=== PATIENT | female | born 1935 | race Caucasian/White ===

== ENCOUNTER → 2019-02-19 | Outpatient (CLI) | payer MEDICARE ==
--- NOTE | 2019-02-19 15:25 | RAD ---
Bilateral lower extremity venous duplex study 02/19/2019 2:00 PM Clinical History: Leg discomfort. Elevated d-dimer. Comparison: None available Technique: Using a combination of real time ultrasound imaging and color-flow and pulse Doppler imaging techniques along with graded compression and augmentation, duplex evaluation of the deep venous system of the both lower extremities was performed. Multiple images were obtained. Findings: There is no sonographic evidence of deep venous thrombosis involving the visualized deep venous structures of either lower extremity. Left popliteal fossa cyst measuring 7.0 x 3.7 x 1.7 cm noted. Impression: No evidence of deep venous thrombosis involving either lower extremity Electronically signed by: Ruddy Yañez MD (02/19/2019 3:23 PM) [id number]
== END | disposition home or self-care (01) ==
LOC: US 14:36
PROVIDERS: ATTEND Nurse Practitioner Family
DX: M25.862 Other specified joint disorders, left knee (principal); M79.89 Other specified soft tissue disorders
CPT/HCPCS: 93970

== ENCOUNTER 2019-08-31 11:43 | Emergency (ER) | payer MEDICARE ==
[2019-08-31] MEDS ORDERED: IV NORMAL SALINE 1000ML BAG 1,000 ML IV SCH (11:57)
[2019-08-31] MEDS ORDERED: ONDANSETRON PF 4 MG/2 ML VIAL. IV ONE (12:00)
[2019-08-31] MEDS ORDERED: fentaNYL PF VIAL 100 MCG/2 ML VIAL IV PRN (12:00)
[2019-08-31 12:39] LABS: BASO % 1 % (0-3); EOS # 0.1 x10^3/uL (0.0-0.7); EOS % 2 % (0-3); HEMATOCRIT 44.3 % (36.0-47.0); HEMOGLOBIN 15.1 g/dL (12.0-15.5); LYMPH # 1.2 x10^3/uL (1.0-4.8); LYMPH % 21 % (24-48); MEAN CORPUSCULAR HEMOGLOBIN 30 pg (25-35); MEAN CORPUSCULAR HGB CONC 34 g/dL (31-37); MEAN CORPUSCULAR VOLUME 89 fL (79-100); MONO # 0.5 x10^3/uL (0.0-1.1); MONO % 9 % (0-9); NEUT # 3.9 x10^3/uL (1.8-7.7); NEUT % 68 % (31-73); PLATELET COUNT 181 x10^3/uL (140-400); RED BLOOD COUNT 4.96 x10^6/uL (3.50-5.40); RED CELL DISTRIBUTION WIDTH 13.8 % (11.5-14.5); WHITE BLOOD COUNT 5.7 x10^3/uL (4.0-11.0)
[2019-08-31] MEDS ORDERED: FAMOTIDINE 20 MG/2 ML VIAL IVP ONE (12:45)
--- NOTE | 2019-08-31 13:04 | PHYS DOC ---
Past Medical History Past Medical History: Anxiety, Arthritis, Diabetes-Type II, High Cholesterol, Hypertension, Hypothyroid, IBS Additional Past Medical Histor: hemmrhoids, neuropathy, cardiomegaly Past Surgical History: Angioplasty, Cholecystectomy Additional Past Surgical Histo: L breast mass removal Alcohol Use: None Adult General Chief Complaint Chief Complaint: MECHANICAL FALL HPI HPI Patient is an 84-year-old female who presents with complaint of right lower adnexal pain that started 5 that pain is progressively getting worse. She states the pain was so severe 2 days ago that she had a syncopal event. Patient states pain is an 8 out of 10 at this time. She states the pain is worsened when she tries to stand up. She has had some nausea but no vomiting. She denies any radiation of the pain.[] Review of Systems Review of Systems Constitutional: Denies fever or chills [] Respiratory: Denies cough or shortness of breath [] Cardiovascular: No additional information not addressed in HPI [] GI: Complains of right lower abdominal pain without vomiting or diarrhea [] Integument: Denies rash or skin lesions [] Neurologic: Denies headache, focal weakness or sensory changes [] All other systems were reviewed and found to be within normal limits, except as documented in this note. Current Medications Current Medications Current Medications Medications (Trade) Dose Ordered Sig/Aj Start Time Stop Time Status Last Admin Dose Admin Famotidine (Pepcid Vial) 20 mg 1X ONCE 08/31/19 12:45 08/31/19 12:46 DC 08/31/19 12:46 20 MG Fentanyl Citrate (Fentanyl 2ml Vial) 25 mcg PRN Q15MIN PRN 08/31/19 12:00 09/01/19 11:59 08/31/19 12:47 25 MCG Info (CONTRAST GIVEN -- Rx MONITORING) 1 each PRN DAILY PRN 08/31/19 15:15 09/02/19 15:14 Iohexol (Omnipaque 300 Mg/ml) 60 ml 1X ONCE 08/31/19 15:15 08/31/19 15:16 DC 08/31/19 15:21 60 ML Ondansetron HCl (Zofran) 4 mg 1X ONCE 08/31/19 12:00 08/31/19 12:36 DC 08/31/19 12:46 4 MG Sodium Chloride 1,000 ml @ 1,000 mls/hr Q1H 1/18/20 11:57 08/31/19 12:56 DC 08/31/19 12:46 1,000 MLS/HR Allergies Allergies Allergies Coded Allergies Type Severity Reaction Last Updated Verified No Known Drug Allergies 08/31/19 No Physical Exam Physical Exam Constitutional: Well developed, well nourished, no acute distress, non-toxic appearance. [] HENT: Normocephalic, atraumatic, bilateral external ears normal, oropharynx moist, no oral exudates, nose normal. [] Eyes: PERRLA, EOMI, conjunctiva normal, no discharge. [] Neck: Normal range of motion, no tenderness, supple, no stridor. [] Cardiovascular: Regular rate and rhythm[] Lungs & Thorax: Bilateral breath sounds clear to auscultation [] Abdomen: Bowel sounds normal, soft, with right adnexal tenderness. [] Skin: Warm, dry, no erythema, no rash. [] Extremities: No tenderness, no cyanosis, no clubbing, ROM intact. [] Neurologic: Alert and oriented X 3, no focal deficits noted. [] Current Patient Data Vital Signs Vital Signs Date Time Temp Pulse Resp B/P (MAP) Pulse Ox O2 Delivery O2 Flow Rate FiO2 08/31/19 14:30 64 15 93 08/31/19 12:47 Room Air 08/31/19 12:15 97.5 161/85 (110) 97.5 Lab Values Laboratory Tests Test 08/31/19 12:25 08/31/19 13:25 08/31/19 15:55 White Blood Count 5.7 x10^3/uL (4.0-11.0) Red Blood Count 4.96 x10^6/uL (3.50-5.40) Hemoglobin 15.1 g/dL (12.0-15.5) Hematocrit 44.3 % (36.0-47.0) Mean Corpuscular Volume 89 fL (79-100) Mean Corpuscular Hemoglobin 30 pg (25-35) Mean Corpuscular Hemoglobin Concent 34 g/dL (31-37) Red Cell Distribution Width 13.8 % (11.5-14.5) Platelet Count 181 x10^3/uL (140-400) Neutrophils (%) (Auto) 68 % (31-73) Lymphocytes (%) (Auto) 21 % (24-48) L Monocytes (%) (Auto) 9 % (0-9) Eosinophils (%) (Auto) 2 % (0-3) Basophils (%) (Auto) 1 % (0-3) Neutrophils # (Auto) 3.9 x10^3/uL (1.8-7.7) Lymphocytes # (Auto) 1.2 x10^3/uL (1.0-4.8) Monocytes # (Auto) 0.5 x10^3/uL (0.0-1.1) Eosinophils # (Auto) 0.1 x10^3/uL (0.0-0.7) Basophils # (Auto) 0.0 x10^3/uL (0.0-0.2) Sodium Level 139 mmol/L (136-145) Potassium Level 4.2 mmol/L (3.5-5.1) Chloride Level 100 mmol/L (98-107) Carbon Dioxide Level 28 mmol/L (21-32) Anion Gap 11 (6-14) Blood Urea Nitrogen 21 mg/dL (7-20) H Creatinine 0.9 mg/dL (0.6-1.0) Estimated GFR (Cockcroft-Gault) 59.9 BUN/Creatinine Ratio 23 (6-20) H Glucose Level 131 mg/dL (70-99) H Calcium Level 10.4 mg/dL (8.5-10.1) H Total Bilirubin 0.9 mg/dL (0.2-1.0) Aspartate Amino Transferase (AST) 31 U/L (15-37) Alanine Aminotransferase (ALT) 16 U/L (14-59) Alkaline Phosphatase 53 U/L (46-116) Total Protein 7.4 g/dL (6.4-8.2) Albumin 3.3 g/dL (3.4-5.0) L Albumin/Globulin Ratio 0.8 (1.0-1.7) L Lipase 103 U/L (73-393) Urine Collection Type Unknown Urine Color Yellow Urine Clarity Cloudy Urine pH 5.0 Urine Specific Wells 1.025 Urine Protein Negative mg/dL (NEG-TRACE) Urine Glucose (UA) Negative mg/dL (NEG) Urine Ketones (Stick) Negative mg/dL (NEG) Urine Blood Negative (NEG) Urine Nitrite Negative (NEG) Urine Bilirubin Negative (NEG) Urine Urobilinogen Dipstick 0.2 mg/dL (0.2 mg/dL) Urine Leukocyte Esterase Small (NEG) Urine RBC 0 /HPF (0-2) Urine WBC 1-4 /HPF (0-4) Urine Squamous Epithelial Cells Mod /LPF Urine Bacteria 0 /HPF (0-FEW) Urine Mucus Slight /LPF Laboratory Tests 08/31/19 12:25 Laboratory Tests 08/31/19 13:25 EKG EKG [] Radiology/Procedures Radiology/Procedures [] Impressions: PROCEDURE: CT ABD PELV W/ IV CONTRST ONLY CT study of the abdomen and pelvis with contrast Clinical indications: Right lower quadrant abdominal pain. TECHNIQUE: After IV infusion of 60 cc of Omnipaque 300, helical CT scanning of the abdomen and pelvis was performed. No GI contrast was administered. This may decrease the sensitivity to detect GI tract pathology. PQRS compliance Statement One or more of the following individualized dose reduction techniques were utilized for this study: 1. Automated exposure control 2. Adjustment of the mA and/or kV according to patient size 3. Use of iterative reconstruction technique COMPARISON: None available. FINDINGS: Diffuse fatty infiltration of the liver is seen. No hepatic mass is seen. The spleen is not enlarged. Pancreas is normal. The gallbladder is not apparent and therefore appears to be surgically absent. No adrenal mass is evident. No hydronephrosis or renal mass or perinephric fluid collection is seen on either side. No hydroureter or urinary tract stone is evident. Urinary bladder is not abnormally distended. No focal aneurysmal dilatation of the abdominal aorta is seen. No enlarged abdominal or pelvic lymphadenopathy is evident. No uterine mass is seen. No dominant ovarian cyst or mass is evident. No obstructive bowel pattern is evident. The appendix is not visualized but there are no secondary CT findings of appendicitis. No free air or free fluid or mesenteric edema is seen. Umbilical hernia is seen containing only fat with mild inflammatory changes. A smaller anterior midline abdominal hernia is seen more superiorly containing only fat. No lung base consolidation is evident. Calcified granuloma of the posterior right lung base is seen. There is a mild compression deformity of the superior endplate of L2. IMPRESSION: Mild compression fracture of the superior endplate of L2 of indeterminate age. Small umbilical hernia containing fat. There is mild inflammation present here consistent with incarceration. The hernia measures 5.5 cm in vertical dimension. There is another anterior abdominal wall hernia more superiorly within the midline which contains only fat and measures 2.7 cm. No inflammation is seen here. Diffuse fatty infiltration of the liver. Electronically signed by: Marc Paredes MD (08/31/2019 4:01 PM) [facility] [place] DICTATED and SIGNED BY: MARC PAREDES MD DATE: 08/31/19 1601 Course & Med Decision Making Course & Med Decision Making Pertinent Labs and Imaging studies reviewed. (See chart for details) Findings of patient's studies reviewed with patient. After reviewing findings of CT, especially in relation to umbilical hernia, patient's hernia was palpated throughout and patient reports no tenderness. There are no external inflammatory signs to suggest incarceration. Patient does report to significant improvement in symptoms at this time. It was explained to patient that we have found nothing to explain pain in the location she is having it. Dragon Disclaimer Dragon Disclaimer This electronic medical record was generated, in whole or in part, using a voice recognition dictation system. Departure Departure Impression: Primary Impression: Right lower quadrant abdominal pain Disposition: HOME, SELF-CARE Condition: STABLE Referrals: HEIKE SANFORD MD (PCP) Patient Instructions: Abdominal Pain Scripts Ondansetron (ONDANSETRON ODT) 4 Mg Tab.rapdis 1 TAB PO PRN Q6-8HRS PRN for NAUSEA, #15 TAB Prov: MALATHI GATICA Jr. DO 08/31/19 Hydrocodone/Apap 5-325 (NORCO 5-325 TABLET) 1 Each Tablet 1-2 EACH PO PRN Q6HRS PRN for PAIN, #15 as needed for pain Prov: MALATHI GATICA Jr. DO 08/31/19 MALATHI GATICA Jr. DO Aug 31, 2019 13:04
[2019-08-31 13:56] LABS: CALCIUM 10.4 mg/dL (8.5-10.1); CREATININE 0.9 mg/dL (0.6-1.0); GFR 59.9; POTASSIUM 4.2 mmol/L (3.5-5.1)
[2019-08-31 14:02] LABS: ALBUMIN 3.3 g/dL (3.4-5.0); ALBUMIN/GLOBULIN RATIO 0.8 (1.0-1.7); TOTAL BILIRUBIN 0.9 mg/dL (0.2-1.0); TOTAL PROTEIN 7.4 g/dL (6.4-8.2)
[2019-08-31] MEDS ORDERED: CONTRAST GIVEN. MC PRN (15:15)
[2019-08-31] MEDS ORDERED: IOHEXOL 300 MG/ML 100ML VIAL. IV ONE (15:15)
[2019-08-31 15:55] VITALS: BP 147/67
[2019-08-31 16:02] LABS: BILIRUBIN,URINE NEGATIVE (NEG); CLARITY,URINE CLOUDY; COLOR,URINE YELLOW; NITRITE,URINE NEGATIVE (NEG); PROTEIN,URINE NEGATIVE (NEG-TRACE); UROBILINOGEN,URINE 0.2 mg/dL (0.2 mg/dL)
--- NOTE | 2019-08-31 16:04 | RAD ---
CT study of the abdomen and pelvis with contrast Clinical indications: Right lower quadrant abdominal pain. TECHNIQUE: After IV infusion of 60 cc of Omnipaque 300, helical CT scanning of the abdomen and pelvis was performed. No GI contrast was administered. This may decrease the sensitivity to detect GI tract pathology. PQRS compliance Statement One or more of the following individualized dose reduction techniques were utilized for this study: 1. Automated exposure control 2. Adjustment of the mA and/or kV according to patient size 3. Use of iterative reconstruction technique COMPARISON: None available. FINDINGS: Diffuse fatty infiltration of the liver is seen. No hepatic mass is seen. The spleen is not enlarged. Pancreas is normal. The gallbladder is not apparent and therefore appears to be surgically absent. No adrenal mass is evident. No hydronephrosis or renal mass or perinephric fluid collection is seen on either side. No hydroureter or urinary tract stone is evident. Urinary bladder is not abnormally distended. No focal aneurysmal dilatation of the abdominal aorta is seen. No enlarged abdominal or pelvic lymphadenopathy is evident. No uterine mass is seen. No dominant ovarian cyst or mass is evident. No obstructive bowel pattern is evident. The appendix is not visualized but there are no secondary CT findings of appendicitis. No free air or free fluid or mesenteric edema is seen. Umbilical hernia is seen containing only fat with mild inflammatory changes. A smaller anterior midline abdominal hernia is seen more superiorly containing only fat. No lung base consolidation is evident. Calcified granuloma of the posterior right lung base is seen. There is a mild compression deformity of the superior endplate of L2. IMPRESSION: Mild compression fracture of the superior endplate of L2 of indeterminate age. Small umbilical hernia containing fat. There is mild inflammation present here consistent with incarceration. The hernia measures 5.5 cm in vertical dimension. There is another anterior abdominal wall hernia more superiorly within the midline which contains only fat and measures 2.7 cm. No inflammation is seen here. Diffuse fatty infiltration of the liver. Electronically signed by: Cleve Paredes MD (08/31/2019 4:01 PM) [facility] [place]
[2019-08-31 16:07] LABS: SQUAMOUS EPITHELIAL CELL,UR MOD /LPF
[2019-08-31 16:08] LABS: BACTERIA,URINE 0 /HPF (0-FEW); RBC,URINE 0 /HPF (0-2)
[2019-08-31] MEDS ORDERED: ONDA4TAB12 PO (16:42)
[2019-08-31] MEDS ORDERED: HYDR-3164 PO (16:42)
--- NOTE | 2019-09-02 06:34 | EKG ---
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
== END 2019-08-31 16:55 | disposition home or self-care (01) ==
LOC: ER 11:43
DX: R10.31 Right lower quadrant pain (principal); R55 Syncope and collapse; R11.0 Nausea; E11.40 Type 2 diabetes mellitus with diabetic neuropathy, unspecified; E78.00 Pure hypercholesterolemia, unspecified; I10 Essential (primary) hypertension; F41.9 Anxiety disorder, unspecified; E03.9 Hypothyroidism, unspecified; K58.9 Irritable bowel syndrome, unspecified; Z90.49 Acquired absence of other specified parts of digestive tract; Z95.5 Presence of coronary angioplasty implant and graft
CPT/HCPCS: 36415; 74177; 80053; 81001; 83690; 85025; 87086; 93005; 96361; 96374; 96375; 99285; J2405; J3010; J3490; J7030; Q9967

== ENCOUNTER 2021-06-17 19:19 | Inpatient (IN) | payer MEDICARE ==
[~2021-06-17] VITALS: Ht 160 cm; Wt 100.6 kg
[~2021-06-17 19:19] MED LIST: HYDR-3164 PO; ONDA4TAB12 PO
--- NOTE | 2021-06-17 21:35 | PHYS DOC ---
Past Medical History Past Medical History: Anxiety, Arthritis, Diabetes-Type II, High Cholesterol, Hypertension, Hypothyroid, IBS Additional Past Medical Histor: hemmrhoids, neuropathy, cardiomegaly Past Surgical History: Angioplasty, Cholecystectomy Additional Past Surgical Histo: L breast mass removal Smoking Status: Former Smoker Alcohol Use: None General Adult EDM: Chief Complaint: RECTAL BLEED HPI: HPI: 85-year-old female past medical history of noninsulin-dependent diabetes, hypertension, hyperlipidemia, GERD, anxiety, urinary incontinence and recently diagnosed diverticulitis, presents to the ED with her son, (patient consents to his/her/their knowledge and involvement in pts' medical care), sent in by her GI doctor Dr. Joshi, concern for rectal bleeding for the past 24 hours " every time I go to the bathroom." States she had a colonoscopy on Monday and was diagnosed with diverticula and colitis. States rectal bleeding persists even without a bowel movement, has been intermittent for the past 2 months but frequent/hourly the past 24 hours. No h/o blood tranfusions. Believes she has a torn hemorrhoid. Review of Systems: Review of Systems: Constitutional: Denies fever or chills. [] Eyes: Denies change in visual acuity. [] HENT: Denies nasal congestion or sore throat. [] Respiratory: Denies cough or shortness of breath. [] Cardiovascular: Denies chest pain or edema. [] GI: Denies nausea or vomiting : Denies dysuria or hematuria Musculoskeletal: Denies back pain or joint pain. [] Integument: Denies rash or diaphoresis Neurologic: Denies headache, focal weakness or sensory changes. [] Endocrine: Denies polyuria or polydipsia. [] Lymphatic: Denies swollen glands. [] Psychiatric: Denies depression or anxiety. [] Heart Score: C/O Chest Pain: No Risk Factors: Risk Factors: DM, Current or recent (<one month) smoker, HTN, HLP, family history of CAD, obesity. Risk Scores: Score 0 - 3: 2.5% MACE over next 6 weeks - Discharge Home Score 4 - 6: 20.3% MACE over next 6 weeks - Admit for Clinical Observation Score 7 - 10: 72.7% MACE over next 6 weeks - Early Invasive Strategies Allergies: Allergies: Allergies Coded Allergies Type Severity Reaction Last Updated Verified NSAIDS (Non-Steroidal Anti-Inflamma Allergy Intermediate 06/17/21 Yes [id number] Reductase Inhibitor Allergy Intermediate diarrhea 06/17/21 Yes Physical Exam: PE: Constitutional: Well developed, well nourished, no acute distress, non-toxic appearance. HENT: Normocephalic, atraumatic, Eyes: EOMI, conjunctiva normal, no discharge. Neck: Normal range of motion, supple, Cardiovascular: S1/2 present, regular rhythm Lungs & Thorax: Speaking in full sentences, bilateral equal chest rise, no tachypnea or increased work of breathing Abdomen: soft, no tenderness, obese Skin: Warm, dry, no erythema, no rash. Back: No tenderness, no CVA tenderness. [] Extremities: No tenderness, no cyanosis, Neurologic: Alert and oriented X 3, normal motor function, normal sensory function, no focal deficits noted. [] Psychologic: Affect normal, judgement normal, anxious : multiple external, nonthrombosed hemorrhoids with dried toilet paper, no bright red blood, no melena, no stool in rectal vault, no blood on underwear Current Patient Data: Labs: Laboratory Tests Test 06/17/21 20:40 Glucose (Fingerstick) 176 mg/dL (70-99) H EKG: EKG: Sinus rhythm 67 bpm, left axis deviation, normal intervals, no T wave inversion, no ST elevation or ST depression Radiology/Procedures: Radiology/Procedures: []IMAGING REPORT Signed PATIENT: ELVIA URRUTIA MACCOUNT: [id number] : 1935 LOCATION: ER AGE: 85 SEX: F EXAM STATUS: REG ER ORD. PHYSICIAN: TONIO OLIVIA DO REASON: rectal bleeding PROCEDURE: CT ABD PELV W/ IV CONTRST ONLY Exam: CT of abdomen and pelvis with contrast INDICATION: Rectal bleeding TECHNIQUE: Sequential axial images through the abdomen and pelvis obtained following the administration of 75 mL of Isovue-370 IV contrast. Sagittal and coronal reformatted images were reconstructed from the axial data and reviewed. Exposure: One or more of the following in the visualized dose reduction techniques were utilized for this examination: 1. Automated exposure control 2. Adjustment of the MA and/or KV according to patient size 3. Use of iterative of reconstructive technique Comparisons: 08/31/2019 FINDINGS: Heart size is normal. No pericardial effusion. Strandy opacities dependent portion lungs likely representing atelectasis. No pleural effusion. Liver, spleen, pancreas, gallbladder and adrenals are unremarkable. No perinephric inflammation or hydronephrosis. No renal or ureteral calculi are identified. Bladder is partially distended and not well evaluated. Uterus not enlarged. No abnormal adnexal mass. Diverticulosis noted at the sigmoid colon without evidence of acute diverticulitis. Appendix is not identified. No free intra-abdominal air or fluid. No obstruction. Abdominal aorta has normal course and caliber. Abdominal vasculature is patent. No enlarged intra-abdominal lymph nodes are identified. No suspicious osseous lesions or acute fractures. IMPRESSION: 1. Diverticulosis without evidence of acute diverticulitis. 2. Otherwise, no acute process identified within the abdomen or pelvis. Electronically signed by: Ascencion Ag MD (06/17/2021 10:35 PM) [facility] DICTATED and SIGNED BY: ASCENCION AG MD DATE: 06/17/21 [id number] Course & Med Decision Making: Course & Med Decision Making Pertinent Labs and Imaging studies reviewed. (See chart for details) Concern for rectal bleeding in the setting of diverticulosis. HD stable, h/h stable. No active bleeding during my exam. Will admit for further monitoring and medical management. Patient stable time of admission and agrees with this plan. I have spoken with the patient and/or caregivers. I have explained the patient's condition, diagnosis and treatment plan based on the information available to me at this time. I have answered the patient's and/or caregivers questions and answered any concerns. The patient and/or caregivers have as good an understanding of the patient's diagnosis, condition and treatment plan as can be expected at this point. The patient has been stabilized within the capability of the emergency department. The patient will be transported for further care and management or will be moved to an observation or inpatient service. I have communicated with the staff or medical practitioner taking over this patient's care. Dragon Disclaimer: Andrés Disclaimer: This electronic medical record was generated, in whole or in part, using a voice recognition dictation system. Departure Departure Impression: Primary Impression: Rectal bleeding Additional Impression: Diverticulosis Disposition: ADMITTED INPATIENT Admitting Physician: COLLEEN (Dr. Clay) Condition: STABLE Referrals: HEIKE SANFORD MD (PCP) TONIO OLIVIA DO Jun 17, 2021 21:35
[2021-06-17 21:43] LABS: BASO # 0.1 x10^3/uL (0.0-0.2); BASO % 1 % (0-3); EOS # 0.2 x10^3/uL (0.0-0.7); EOS % 3 % (0-3); HEMATOCRIT 39.2 % (36.0-47.0); HEMOGLOBIN 13.2 g/dL (12.0-15.5); LYMPH # 1.2 x10^3/uL (1.0-4.8); LYMPH % 19 % (24-48); MEAN CORPUSCULAR HEMOGLOBIN 31 pg (25-35); MEAN CORPUSCULAR HGB CONC 34 g/dL (31-37); MEAN CORPUSCULAR VOLUME 93 fL (79-100); MONO # 0.8 x10^3/uL (0.0-1.1); MONO % 13 % (0-9); NEUT # 4.1 x10^3/uL (1.8-7.7); NEUT % 65 % (31-73); PLATELET COUNT 157 x10^3/uL (140-400); RED BLOOD COUNT 4.22 x10^6/uL (3.50-5.40); RED CELL DISTRIBUTION WIDTH 13.1 % (11.5-14.5); WHITE BLOOD COUNT 6.3 x10^3/uL (4.0-11.0)
[2021-06-17 21:51] LABS: FECAL OB PT POSITIVE (NEG)
[2021-06-17 21:52] LABS: CALCIUM 8.4 mg/dL (8.5-10.1); CREATININE 0.9 mg/dL (0.6-1.0); GFR 59.8; POTASSIUM 3.8 mmol/L (3.5-5.1); PROTHROMBIN TIME PATIENT 13.3 SEC (11.7-14.0)
[2021-06-17 21:57] LABS: ALBUMIN 3.1 g/dL (3.4-5.0); ALBUMIN/GLOBULIN RATIO 0.8 (1.0-1.7); TOTAL BILIRUBIN 0.7 mg/dL (0.2-1.0); TOTAL PROTEIN 6.9 g/dL (6.4-8.2)
[2021-06-17] MEDS ORDERED: IV NORMAL SALINE 1000ML BAG 1,000 ML IV ONE ×2 (22:00→23:45)
[2021-06-17] MEDS ORDERED: CONTRAST GIVEN. MC PRN (22:15)
[2021-06-17] MEDS ORDERED: IOHEXOL 300 MG/ML 100ML VIAL. IV ONE (22:30)
[2021-06-17] MEDS ORDERED: MORPHINE SULFATE 4 MG/ML INJ. IVP ONE (22:30)
--- NOTE | 2021-06-17 22:37 | RAD ---
Exam: CT of abdomen and pelvis with contrast INDICATION: Rectal bleeding TECHNIQUE: Sequential axial images through the abdomen and pelvis obtained following the administrati on of 75 mL of Isovue-370 IV contrast. Sagittal and coronal reformatted images were reconstructed fro m the axial data and reviewed. Exposure: One or more of the following in the visualized dose reduction techniques were utilized for this examination: 1. Automated exposure control 2. Adjustment of the MA and/or KV according to patient size 3. Use of iterative of reconstructive technique Comparisons: 08/31/2019 FINDINGS: Heart size is normal. No pericardial effusion. Strandy opacities dependent portion lungs likely repre senting atelectasis. No pleural effusion. Liver, spleen, pancreas, gallbladder and adrenals are unremarkable. No perinephric inflammation or hydronephrosis. No renal or ureteral calculi are identified. Bladder is partially distended and not well evaluated. Uterus not enlarged. No abnormal adnexal mass. Diverticulosis noted at the sigmoid colon without evidence of acute diverticulitis. Appendix is not i dentified. No free intra-abdominal air or fluid. No obstruction. Abdominal aorta has normal course and caliber. Abdominal vasculature is patent. No enlarged intra-abdominal lymph nodes are identified. No suspicious osseous lesions or acute fractures. IMPRESSION: 1. Diverticulosis without evidence of acute diverticulitis. 2. Otherwise, no acute process identified within the abdomen or pelvis. Electronically signed by: Ascencion Wilhelm MD (06/17/2021 10:35 PM) [facility]
[2021-06-18] VITALS (7 sets, daily range): BP systolic 106–126; BP diastolic 42–72
[2021-06-18] MEDS ORDERED: IV NORMAL SALINE 1000ML BAG 1,000 ML IV SCH (01:00)
[2021-06-18] MEDS ORDERED: DEXTROSE 50% 25 GM / 50ML DISP.SYRIN. IV PRN (01:45)
[2021-06-18] MEDS ORDERED: METO50TA6 PO (02:59)
[2021-06-18] MEDS ORDERED: LEVO100T5 PO (02:59)
[2021-06-18] MEDS ORDERED: LISI20TA18 PO (02:59)
[2021-06-18] MEDS ORDERED: ALPR0.254 PO (02:59)
[2021-06-18] MEDS ORDERED: AMLO-186 PO (02:59)
[2021-06-18] MEDS ORDERED: GLIM2TAB7 PO (02:59)
[2021-06-18] MEDS ORDERED: FAMO-63 PO (02:59)
[2021-06-18] MEDS ORDERED: FURO-69 PO (02:59)
[2021-06-18] MEDS ORDERED: COLE1TAB2 PO (06:03)
--- NOTE | 2021-06-18 09:50 | PDOC2 ---
GI CONSULT Date of Service: DATE: 06/18/21 TIME: 09:50 Reason For Consult: rectal bleeding HPI: HPI: 85 y/o female admitted through ER. She reports a long history of IBS-D w/ chronic abdominal cramping and also a long h/o intermittent rectal bleeding. She reports a normal colonoscopy for this ~7 years ago. She assumes "a hemorrhoid ruptures" about twice monthly. Then about 1.5 months ago, she was very ill - "it felt like someone poured lye in my intestines." Increased bleeding during this time - always red, sometimes w/ clots, always described w/ mucous. Chronic lower abdominal cramping was also worse. She saw PCP who ordered CT from [facility] - was told "bleeding diverticulitis" and Rx Augmentin which she didn't take because that's too strong. Then she saw Dr. Mills - she says he agreed that Augmentin was too strong for her. Then she had a colonoscopy on Monday of this week at [facility] which reportedly showed "colitis and diverticulitis" - says biopsies were taken and she was advised to take fiber. She felt a little better that day, but then had recurrence of bleeding ("dripping down my leg") at midnight on Monday, again associated w/ chronic but worse lower abdominal cramping. She was advised by Dr. Mills to come to the nearest hospital. She is disappointed that he is not here to see her. Has had two EGDs this year w/ Dr. Mills - first in October which reportedly revealed a stomach ulcer, hiatal hernia, and ulcerations in the esophagus. Follow-up EGD reportedly showed improvement. Recalls no h/o H. pylori - "nobody says anything and that's the problem." Was prescribed pantoprazole but this is "too strong" so she takes Pepcid BID PRN. Denies dysphagia, n/v, constipation, melena, and weight loss. H/o IBD-S as above - takes Colestipol Q a.m. and usually has about 1 soft formed stool daily. If she forgets, has more frequent loose stools and worsening of chronic lower abdominal cramping. S/p cholecystectomy. "Liver disease" mentioned to her in the past - "they always ask me how long I've been a heavy drinker and I've never drank." Fatty liver on previous CT here which also noted umbilical and abdominal wall hernias. Denies pancreas history. Denies NSAIDs but takes Tylenol frequently. She requests cranberry juice and something for mid back pain. Mentions her son might be able to bring pictures from recent colonscopy - says even she can see the inflammation related to diverticulitis. She has concern for colon perforation. Rectal exam per ER note showed hemorrhoids, no blood. D/w nurse - had a lot of red blood mixed with urine. PMH: PMH: HTN, HLD, DM, peripheral neuropathy, hypothyroidism, anxiety cholecystectomy, appendectomy, left breast mass (benign) excision FH: Family History: No pertinent hx Social History: Smoke: Quit ALCOHOL: none Drugs: None ROS: GEN: Denies fevers, chills, sweats HEENT: Denies blurred vision, sore throat CV: Denies chest pain RESP: Denies shortness of air, cough GI: Per HPI : Denies hematuria, dysuria ENDO: Denies weight changes NEURO: had dizziness initially 1.5 months ago but none now MSK: back pain SKIN: Denies jaundice, pruritus Vitals: Vitals: Vital Signs Date Time Temp Pulse Resp B/P (MAP) Pulse Ox O2 Delivery O2 Flow Rate FiO2 06/18/21 07:00 98.2 65 18 114/51 (72) 95 Nasal Cannula 2.0 98.2 Labs: Labs: Laboratory Tests Test 06/17/21 20:40 06/17/21 21:15 06/17/21 21:35 06/18/21 00:42 Glucose (Fingerstick) 176 mg/dL (70-99) 86 mg/dL (70-99) Stool Occult Blood Positive (NEG) White Blood Count 6.3 x10^3/uL (4.0-11.0) Red Blood Count 4.22 x10^6/uL (3.50-5.40) Hemoglobin 13.2 g/dL (12.0-15.5) Hematocrit 39.2 % (36.0-47.0) Mean Corpuscular Volume 93 fL (79-100) Mean Corpuscular Hemoglobin 31 pg (25-35) Mean Corpuscular Hemoglobin Concent 34 g/dL (31-37) Red Cell Distribution Width 13.1 % (11.5-14.5) Platelet Count 157 x10^3/uL (140-400) Neutrophils (%) (Auto) 65 % (31-73) Lymphocytes (%) (Auto) 19 % (24-48) Monocytes (%) (Auto) 13 % (0-9) Eosinophils (%) (Auto) 3 % (0-3) Basophils (%) (Auto) 1 % (0-3) Neutrophils # (Auto) 4.1 x10^3/uL (1.8-7.7) Lymphocytes # (Auto) 1.2 x10^3/uL (1.0-4.8) Monocytes # (Auto) 0.8 x10^3/uL (0.0-1.1) Eosinophils # (Auto) 0.2 x10^3/uL (0.0-0.7) Basophils # (Auto) 0.1 x10^3/uL (0.0-0.2) Prothrombin Time 13.3 SEC (11.7-14.0) Prothromb Time International Ratio 1.0 (0.8-1.1) Activated Partial Thromboplast Time 32 SEC (24-38) Sodium Level 141 mmol/L (136-145) Potassium Level 3.8 mmol/L (3.5-5.1) Chloride Level 104 mmol/L (98-107) Carbon Dioxide Level 33 mmol/L (21-32) Anion Gap 4 (6-14) Blood Urea Nitrogen 14 mg/dL (7-20) Creatinine 0.9 mg/dL (0.6-1.0) Estimated GFR (Cockcroft-Gault) 59.8 BUN/Creatinine Ratio 16 (6-20) Glucose Level 149 mg/dL (70-99) Calcium Level 8.4 mg/dL (8.5-10.1) Total Bilirubin 0.7 mg/dL (0.2-1.0) Aspartate Amino Transf (AST/SGOT) 21 U/L (15-37) Alanine Aminotransferase (ALT/SGPT) 17 U/L (14-59) Alkaline Phosphatase 51 U/L (46-116) Total Protein 6.9 g/dL (6.4-8.2) Albumin 3.1 g/dL (3.4-5.0) Albumin/Globulin Ratio 0.8 (1.0-1.7) Test 06/18/21 06:26 Glucose (Fingerstick) 100 mg/dL (70-99) Allergies: Coded Allergies: NSAIDS (Non-Steroidal Anti-Inflamma (Verified Allergy, Intermediate, 06/17/21) [id number] Reductase Inhibitor (Verified Allergy, Intermediate, diarrhea, 06/17/21) Medications: Current Medications Medications (Trade) Dose Ordered Sig/Aj Route PRN Reason Start Time Stop Time Status Last Admin Dose Admin Lorazepam (Ativan Inj) 0.5 mg 1X ONCE IVP 06/17/21 22:00 06/17/21 22:01 DC 06/17/21 21:44 Sodium Chloride 1,000 ml @ 1,000 mls/hr 1X ONCE IV 06/17/21 22:00 06/17/21 22:59 DC 06/17/21 21:44 Morphine Sulfate (Morphine Sulfate) 4 mg 1X ONCE IVP 06/17/21 22:30 06/17/21 22:31 DC 06/17/21 22:05 Iohexol (Omnipaque 300 Mg/ml) 75 ml 1X ONCE IV 06/17/21 22:30 06/17/21 22:31 DC 06/17/21 22:14 Sodium Chloride 1,000 ml @ 1,000 mls/hr 1X ONCE IV 06/17/21 23:45 06/18/21 00:44 DC 06/18/21 00:49 Sodium Chloride 1,000 ml @ 100 mls/hr Q10H IV 06/18/21 01:00 06/18/21 01:01 DC 06/18/21 02:19 Imaging: Imaging: CT A/P 06/17/21 IMPRESSION: 1. Diverticulosis without evidence of acute diverticulitis. 2. Otherwise, no acute process identified within the abdomen or pelvis. PE: GEN: NAD HEENT: Atraumatic, PERRL LUNGS: CTAB HEART: RRR ABD: NABS, soft, large, umbilical tenderness - "that's my hernia and it always hurts," and non-specific tenderness across lower abdomen EXTREMITY: No edema SKIN: No rashes, no jaundice NEURO/PSYCH: A & O 3 A/P: A/P: Hematochezia, lower abdominal cramping +Hemoccult ?h/o PUD ?reflux IBS S/p cholecystectomy Fatty liver BMI 41 -- Okay to try clear liquids per GI. Has many chronic GI issues, but bleeding and cramping are worse now. Await recheck of Hgb. Interestingly, CT unrevealing here - would be nice to see colonoscopy procedure/path reports and outside CT. 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 Defer back pain complaints to primary. Will return to see later today w/ Dr. Ragsdale. NOLVIA PERKINS Jun 18, 2021 09:50
[2021-06-18 10:07] LABS: BASO % 1 % (0-3); EOS # 0.2 x10^3/uL (0.0-0.7); EOS % 4 % (0-3); HEMATOCRIT 36.9 % (36.0-47.0); HEMOGLOBIN 11.9 g/dL (12.0-15.5); LYMPH # 0.8 x10^3/uL (1.0-4.8); LYMPH % 18 % (24-48); MEAN CORPUSCULAR HEMOGLOBIN 30 pg (25-35); MEAN CORPUSCULAR HGB CONC 32 g/dL (31-37); MEAN CORPUSCULAR VOLUME 94 fL (79-100); MONO # 0.6 x10^3/uL (0.0-1.1); MONO % 13 % (0-9); NEUT # 2.8 x10^3/uL (1.8-7.7); NEUT % 65 % (31-73); PLATELET COUNT 142 x10^3/uL (140-400); RED BLOOD COUNT 3.93 x10^6/uL (3.50-5.40); RED CELL DISTRIBUTION WIDTH 12.9 % (11.5-14.5); WHITE BLOOD COUNT 4.4 x10^3/uL (4.0-11.0)
[2021-06-18] MEDS: PANTOPRAZOLE 40 MG TABLET.DR. PO SCH (10:26)
[2021-06-18] MEDS: HYDROcodone/APAP 5/325MG 1 TAB TABLET PO PRN ×2 (10:27→16:17)
[2021-06-18] MEDS: LIDOCAINE (700MG/PATCH) PATCH. TD SCH (10:28)
--- NOTE | 2021-06-18 10:37 | NUR ---
SW following. Discussed with RN, pt from home alone, wearing 2L of oxygen from getting morphine, NPO. GI following. RN ordering PT/OT. SW will continue to follow.
--- NOTE | 2021-06-18 11:56 | HP ---
DATE OF SERVICE: 06/18/2021 ADMIT DATE: 06/17/2021 CHIEF COMPLAINT: Abdominal pain and rectal bleeding. HISTORY OF PRESENT ILLNESS: The patient is a pleasant 85-year-old female who has had a long history of irritable bowel syndrome. She states she had a normal colonoscopy 7 years ago, but has a hemorrhoid that ruptures every now and then, and causes some rectal bleeding. She presented to the ER last night with abdominal pain that was intractable. She apparently did have a colonoscopy this past Monday as well at [facility], which showed colitis and possible diverticulitis. We did a CAT scan. It does not show diverticulitis, but does show diverticulosis. I discussed the case with the ER physician. We admitted the patient with consultation to GI. PAST MEDICAL HISTORY: Diverticulosis, irritable bowel syndrome, hypertension, hyperlipidemia, neuropathy, hypothyroidism, anxiety, cholecystectomy, appendectomy, left breast lumpectomy. ALLERGIES: NONSTEROIDALS AND STATINS. FAMILY HISTORY: Diabetes. SOCIAL HISTORY: She does not drink, smoke or take drugs. She is retired. MEDICATIONS: Reviewed. Please refer to the MRAD. REVIEW OF SYSTEMS: GENERAL: No history of weight change, weakness or fevers. SKIN: No bruising, hair changes or rashes. EYES: No blurred, double or loss of vision. NOSE AND THROAT: No history of nosebleeds, hoarseness or sore throat. HEART: No history of palpitations, chest pain or shortness of breath on exertion. LUNGS: Denies cough, hemoptysis, wheezing or shortness of breath. GASTROINTESTINAL: Denies changes in appetite, nausea, vomiting, diarrhea or constipation. GENITOURINARY: No history of frequency, urgency, hesitancy or nocturia. NEUROLOGIC: Denies history of numbness, tingling, tremor or weakness. PSYCHIATRIC: No history of panic, anxiety or depression. ENDOCRINE: No history of heat or cold intolerance, polyuria or polydipsia. EXTREMITIES: Denies muscle weakness, joint pain, pain on walking or stiffness. PHYSICAL EXAMINATION: VITALS: Within normal limits and are stable. GENERAL: No apparent distress. Alert and oriented. HEENT: Normal cephalic atraumatic, external auditory canals are patent. Eyes: Extraocular muscles are intact, pupils are equally round and reactive to light and accommodation. MUSCULOSKELETAL: Well developed, well nourished, good range of motion. ENDOCRINE: No thyromegaly was palpated. LYMPHATICS: No cervical chain or axillary nodes were noted. HEMATOPOIETIC: No bruising. NECK: Supple, no JVD, no thyromegaly was noted. LUNGS: Clear to auscultation in all lung franco without rhonchi or wheezing. HEART: RRR, S1, S2 present. Peripheral pulses intact, no obvious murmurs were noted. ABDOMEN: Soft, nontender. Positive bowel sounds no organomegaly, normal bowel sounds. EXTREMITIES: Without any cyanosis, clubbing, or edema. Pedal pulses intact, Homans sign is negative. NEUROLOGIC: Normal speech, normal tone. A and O x 3, moves all extremities, no obvious focal deficits. PSYCHIATRIC: Normal affect, normal mood. Stable. SKIN: No ulcerations or rashes, good skin turgor, no jaundice. VASCULAR: Good capillary refill, neurovascular bundle appears to be intact. LABORATORY DATA: White count 6, hemoglobin 13, platelets 157. Electrolytes are normal. INR is 1. Stool occult blood was positive. ASSESSMENT AND PLAN: Abdominal pain with possible gastrointestinal bleed. The patient has been admitted. We are giving her IV proton pump inhibitors. We consulted GI. Home meds. Deep venous thrombosis prophylaxis. Full code. Trend labs. P.r.n. pain meds. LORY/SULEIMAN DR: LORY/lu TID: [id number]
[2021-06-18] MEDS: PATCH REMOVAL. MC SCH (21:00)
--- NOTE | 2021-06-18 21:12 | EKG ---
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
[2021-06-18] MEDS: ALPRAZolam 0.25 MG TABLET PO PRN (22:26)
[2021-06-19 03:47] VITALS: BP 165/61
[2021-06-19 07:00] VITALS: BP 135/81
[2021-06-19] MEDS: PANTOPRAZOLE 40 MG TABLET.DR. PO SCH (07:30)
[2021-06-19] MEDS: ALPRAZolam 0.25 MG TABLET PO PRN ×2 (07:50→20:20)
[2021-06-19] MEDS: HYDROcodone/APAP 5/325MG 1 TAB TABLET PO PRN ×2 (07:52→15:45)
[2021-06-19] MEDS: LIDOCAINE (700MG/PATCH) PATCH. TD SCH (08:35)
[2021-06-19 08:49] LABS: HEMOGLOBIN 11.7 g/dL (12.0-15.5); RED BLOOD COUNT 3.85 x10^6/uL (3.50-5.40); RED CELL DISTRIBUTION WIDTH 12.8 % (11.5-14.5); WHITE BLOOD COUNT 4.1 x10^3/uL (4.0-11.0)
--- NOTE | 2021-06-19 09:30 | NUR ---
Patient refused to have the bed alarm on, patient was explain ed why she needs the bed alarm and patient stated she does not want it because it sends her into a panic attack. Patient states that if she needed to she would sign a waver. Patient also stated she would call when getting up but RN has found patient getting up to the commode by herself. RN explained again the reason behind her calling and the bed alarm and patient stated she can do it herself as long as the commode is next to her bed and that if she needed us or was dizzy when sitting up she would call us.
[2021-06-19 11:00] VITALS: BP 121/64
--- NOTE | 2021-06-19 11:08 | PDOC ---
[employer] PROGRESS NOTE Date of Service DOS: DATE: 06/19/21 TIME: 11:07 Chief Complaint Chief Complaint Mild GI bleed Diverticulosis, irritable bowel syndrome, hypertension, hyperlipidemia, neuropathy, hypothyroidism, anxiety, cholecystectomy, appendectomy, left breast lumpectomy. History of Present Illness History of Present Illness 06/19/2021 Patient seen and examined She is up on the edge of the bed trying to eat breakfast Chart reviewed Discussed with RN Vitals/I&O Vitals/I&O: Vital Signs Date Time Temp Pulse Resp B/P (MAP) Pulse Ox O2 Delivery O2 Flow Rate FiO2 06/19/21 07:55 Room Air 06/19/21 07:00 97.6 100 20 135/81 (99) 95 2.0 97.6 I & O 06/18/21 06/18/21 06/19/21 15:00 23:00 07:00 Intake Total 240 ml 240 ml 100 ml Balance 240 ml 240 ml 100 ml Physical Exam General: Alert Heart: Regular rate Lungs: Clear Abdomen: Normal bowel sounds Extremities: No clubbing Skin: No rashes Labs Labs: Laboratory Tests Test 06/18/21 11:40 06/18/21 19:58 06/19/21 07:00 06/19/21 07:24 Glucose (Fingerstick) 176 mg/dL (70-99) 137 mg/dL (70-99) 126 mg/dL (70-99) White Blood Count 4.1 x10^3/uL (4.0-11.0) Red Blood Count 3.85 x10^6/uL (3.50-5.40) Hemoglobin 11.7 g/dL (12.0-15.5) Hematocrit 36.0 % (36.0-47.0) Mean Corpuscular Volume 94 fL (79-100) Mean Corpuscular Hemoglobin 30 pg (25-35) Mean Corpuscular Hemoglobin Concent 33 g/dL (31-37) Red Cell Distribution Width 12.8 % (11.5-14.5) Platelet Count 152 x10^3/uL (140-400) Assessment and Plan Assessmemt and Plan Problems Medical Problems: (1) Diverticulosis Status: Acute (2) Rectal bleeding Status: Acut Resolving mild GI bleed Diverticulosis, irritable bowel syndrome, hypertension, hyperlipidemia, neuropathy, hypothyroidism, anxiety, cholecystectomy, appendectomy, left breast lumpectomy. Plan Trend hemoglobin Encourage p.o. intake PPIs Appreciate GI input Home meds DVT prophylaxis Full code Probable discharge in a.m. if stable Comment Review of Relevant I have reviewed the following items suma (where applicable) has been applied. Medications: Current Medications Medications (Trade) Dose Ordered Sig/Aj Route PRN Reason Start Time Stop Time Status Last Admin Dose Admin Miscellaneous (Lidoderm Patch Removal) 1 ea QHS 06/18/21 21:00 06/18/21 21:00 Alprazolam (Xanax) 0.25 mg PRN BID PRN PO ANXIETY / AGITATION 06/18/21 22:15 06/19/21 07:50 Justifications for Admission Other Justification EDMUNDO SINGLETON III DO Jun 19, 2021 11:08
--- NOTE | 2021-06-19 11:43 | PDOC ---
G I PROGRESS NOTE Subjective Says diarrhea today. No mention of any major bleeding. Physical Exam Lungs clear anteriorly. RRR Abdomen soft, not tender nor distended. Review of Relevant I have reviewed the following items suma (where applicable) has been applied. Labs Laboratory Tests Test 06/17/21 20:40 06/17/21 21:15 06/17/21 21:35 06/18/21 00:42 Glucose (Fingerstick) 176 mg/dL (70-99) 86 mg/dL (70-99) Stool Occult Blood Positive (NEG) White Blood Count 6.3 x10^3/uL (4.0-11.0) Red Blood Count 4.22 x10^6/uL (3.50-5.40) Hemoglobin 13.2 g/dL (12.0-15.5) Hematocrit 39.2 % (36.0-47.0) Mean Corpuscular Volume 93 fL (79-100) Mean Corpuscular Hemoglobin 31 pg (25-35) Mean Corpuscular Hemoglobin Concent 34 g/dL (31-37) Red Cell Distribution Width 13.1 % (11.5-14.5) Platelet Count 157 x10^3/uL (140-400) Neutrophils (%) (Auto) 65 % (31-73) Lymphocytes (%) (Auto) 19 % (24-48) Monocytes (%) (Auto) 13 % (0-9) Eosinophils (%) (Auto) 3 % (0-3) Basophils (%) (Auto) 1 % (0-3) Neutrophils # (Auto) 4.1 x10^3/uL (1.8-7.7) Lymphocytes # (Auto) 1.2 x10^3/uL (1.0-4.8) Monocytes # (Auto) 0.8 x10^3/uL (0.0-1.1) Eosinophils # (Auto) 0.2 x10^3/uL (0.0-0.7) Basophils # (Auto) 0.1 x10^3/uL (0.0-0.2) Prothrombin Time 13.3 SEC (11.7-14.0) Prothromb Time International Ratio 1.0 (0.8-1.1) Activated Partial Thromboplast Time 32 SEC (24-38) Sodium Level 141 mmol/L (136-145) Potassium Level 3.8 mmol/L (3.5-5.1) Chloride Level 104 mmol/L (98-107) Carbon Dioxide Level 33 mmol/L (21-32) Anion Gap 4 (6-14) Blood Urea Nitrogen 14 mg/dL (7-20) Creatinine 0.9 mg/dL (0.6-1.0) Estimated GFR (Cockcroft-Gault) 59.8 BUN/Creatinine Ratio 16 (6-20) Glucose Level 149 mg/dL (70-99) Calcium Level 8.4 mg/dL (8.5-10.1) Total Bilirubin 0.7 mg/dL (0.2-1.0) Aspartate Amino Transf (AST/SGOT) 21 U/L (15-37) Alanine Aminotransferase (ALT/SGPT) 17 U/L (14-59) Alkaline Phosphatase 51 U/L (46-116) Total Protein 6.9 g/dL (6.4-8.2) Albumin 3.1 g/dL (3.4-5.0) Albumin/Globulin Ratio 0.8 (1.0-1.7) Test 06/18/21 06:26 06/18/21 09:20 06/18/21 11:40 06/18/21 19:58 Glucose (Fingerstick) 100 mg/dL (70-99) 176 mg/dL (70-99) 137 mg/dL (70-99) White Blood Count 4.4 x10^3/uL (4.0-11.0) Red Blood Count 3.93 x10^6/uL (3.50-5.40) Hemoglobin 11.9 g/dL (12.0-15.5) Hematocrit 36.9 % (36.0-47.0) Mean Corpuscular Volume 94 fL (79-100) Mean Corpuscular Hemoglobin 30 pg (25-35) Mean Corpuscular Hemoglobin Concent 32 g/dL (31-37) Red Cell Distribution Width 12.9 % (11.5-14.5) Platelet Count 142 x10^3/uL (140-400) Neutrophils (%) (Auto) 65 % (31-73) Lymphocytes (%) (Auto) 18 % (24-48) Monocytes (%) (Auto) 13 % (0-9) Eosinophils (%) (Auto) 4 % (0-3) Basophils (%) (Auto) 1 % (0-3) Neutrophils # (Auto) 2.8 x10^3/uL (1.8-7.7) Lymphocytes # (Auto) 0.8 x10^3/uL (1.0-4.8) Monocytes # (Auto) 0.6 x10^3/uL (0.0-1.1) Eosinophils # (Auto) 0.2 x10^3/uL (0.0-0.7) Basophils # (Auto) 0.0 x10^3/uL (0.0-0.2) Test 06/19/21 07:00 06/19/21 07:24 06/19/21 11:30 White Blood Count 4.1 x10^3/uL (4.0-11.0) Red Blood Count 3.85 x10^6/uL (3.50-5.40) Hemoglobin 11.7 g/dL (12.0-15.5) Hematocrit 36.0 % (36.0-47.0) Mean Corpuscular Volume 94 fL (79-100) Mean Corpuscular Hemoglobin 30 pg (25-35) Mean Corpuscular Hemoglobin Concent 33 g/dL (31-37) Red Cell Distribution Width 12.8 % (11.5-14.5) Platelet Count 152 x10^3/uL (140-400) Glucose (Fingerstick) 126 mg/dL (70-99) 135 mg/dL (70-99) Laboratory Tests Test 06/18/21 19:58 06/19/21 07:00 06/19/21 07:24 06/19/21 11:30 Glucose (Fingerstick) 137 mg/dL (70-99) 126 mg/dL (70-99) 135 mg/dL (70-99) White Blood Count 4.1 x10^3/uL (4.0-11.0) Red Blood Count 3.85 x10^6/uL (3.50-5.40) Hemoglobin 11.7 g/dL (12.0-15.5) Hematocrit 36.0 % (36.0-47.0) Mean Corpuscular Volume 94 fL (79-100) Mean Corpuscular Hemoglobin 30 pg (25-35) Mean Corpuscular Hemoglobin Concent 33 g/dL (31-37) Red Cell Distribution Width 12.8 % (11.5-14.5) Platelet Count 152 x10^3/uL (140-400) Vitals/I & O Vital Sign - Last 24 Hours 06/18/21 06/18/21 06/18/21 06/18/21 15:00 16:17 17:15 19:00 Temp 97.8 98.2 97.8 98.2 Pulse 69 75 Resp 18 18 B/P (MAP) 106/63 (77) 126/72 (90) Pulse Ox 94 95 O2 Delivery Nasal Cannula Room Air Room Air Nasal Cannula O2 Flow Rate 2.0 2.0 06/18/21 06/18/21 06/19/21 06/19/21 20:00 23:29 03:47 07:00 Temp 98.5 98.7 97.6 98.5 98.7 97.6 Pulse 75 77 100 Resp 18 18 20 B/P (MAP) 120/42 (68) 165/61 (95) 135/81 (99) Pulse Ox 95 95 95 O2 Delivery Room Air Nasal Cannula Nasal Cannula Nasal Cannula O2 Flow Rate 2.0 2.0 2.0 06/19/21 06/19/21 07:52 07:55 O2 Delivery Room Air Room Air Intake and Output 06/18/21 06/18/21 06/19/21 15:00 23:00 07:00 Intake Total 240 ml 240 ml 100 ml Balance 240 ml 240 ml 100 ml Problem List Problems Medical Problems: (1) Diverticulosis Status: Acute (2) Rectal bleeding Status: Acute Assessment Bleeding ceased? Doesn't seem to be necessarily more than bleeding hemorrhoids. Plan of Care Note Continue as now. Home soon if remains with stable hemoglobin. Justicifation of Admission Dx: Justifications for Admission: Justification of Admission Dx: N/A (none apply) NILSON SHULTZ MD Jun 19, 2021 11:43
[2021-06-19 15:00] VITALS: BP 133/64
--- NOTE | 2021-06-19 16:03 | NUR ---
PT Screen completed. After review of chart and speaking with the patient and nurse, pt. would benefit from PT Evaluation to further assess PT needs. Please issue PT/OT Evaluation orders. Thank you
[2021-06-19 19:00] VITALS: BP 122/57
[2021-06-19] MEDS: PATCH REMOVAL. MC SCH (21:00)
[2021-06-19 23:00] VITALS: BP 116/75
[2021-06-19] MEDS: METOPROLOL TART IMMED RELEASE 50 MG TABLET. PO SCH (23:20)
[2021-06-20 03:00] VITALS: BP 132/63
[2021-06-20] MEDS: PANTOPRAZOLE 40 MG TABLET.DR. PO SCH (06:41)
[2021-06-20 08:00] VITALS: BP 140/69
[2021-06-20] MEDS: LIDOCAINE (700MG/PATCH) PATCH. TD SCH (09:00)
[2021-06-20] MEDS: METOPROLOL TART IMMED RELEASE 50 MG TABLET. PO SCH (09:08)
[2021-06-20] MEDS: ALPRAZolam 0.25 MG TABLET PO PRN (09:08)
[2021-06-20 11:00] VITALS: BP 130/79
[2021-06-20] MEDS ORDERED: PANT40TA77 PO (11:04)
[2021-06-20] MEDS ORDERED: HYDR-2761 PO (11:04)
--- NOTE | 2021-06-20 11:06 | SNU/HH DC ---
DISCHARGE WITH HOME HEALTH DISCHARGE INFORMATION: Final Diagnosis: Problems Medical Problems: (1) Diverticulosis Status: Acute (2) Rectal bleeding Status: Acute Condition on Discharge: Stable CODE STATUS: Code Status: Full HOME HEALTH: Face to Face: I certify this patient is under my care and that I, or a nurse practitioner or physician's food service assistant working with me, had a face to face encounter that meets the physician face to face encounter requirements with this patient on []. 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 POST DISCHARGE ORDERS: DIET AFTER DISCHARGE: Cardiac CERTIFICATION STATEMENT: Certification Statement: Certification Statement: Based on the above finding, I certify that this patient is confined to the home and needs intermittent snf care, physical therapy and/or speech therapy, or continues to need occupational therapy.~ This patient is under my care, and I have initiated the establishment of the plan of care.~ This patient will be followed by myself or a community physician who will periodically review the plan of care. Home Meds Active Scripts Hydrocodone Bit/Acetaminophen (HYDROCODONE-APAP 5-325 ) 1 Tab Tablet, 1 TAB PO PRN Q4HRS PRN for MODERATE TO SEVERE PAIN for 7 Days, #14 TAB Prov:EDMUNDO SINGLETON K III DO 06/20/21 Reported Medications Colestipol Hcl (COLESTIPOL HCL) 1 Gm Tablet, 1 GM PO TID PRN PRN for IBS, TAB 06/18/21 Levothyroxine Sodium (LEVOTHYROXINE SODIUM) 100 Mcg Tablet, 1 TAB PO DAILY for thyroid , #30 TAB 5 Refills 06/18/21 Amlodipine Besylate (AMLODIPINE BESYLATE) 5 Mg Tablet, 5 MG PO DAILY for HTN, TAB 06/18/21 Glimepiride (GLIMEPIRIDE) 2 Mg Tablet, 1 TAB PO DAILY for DM, #30 TAB 5 Refills 06/18/21 Lisinopril (LISINOPRIL) 20 Mg Tablet, 1 TAB PO DAILY for HTN, #30 TAB 5 Refills 06/18/21 Furosemide (LASIX) 20 Mg Tablet, 20 MG PO TWICE WEEKLY PRN for SEE COMMENTS, TAB leg swelling 06/18/21 Famotidine (PEPCID) 20 Mg Tablet, 20 MG PO BID for reflux, TAB 06/18/21 Metoprolol Tartrate (METOPROLOL TARTRATE) 50 Mg Tablet, 1 TAB PO BID for HTN, #60 TAB 5 Refills 06/18/21 Alprazolam (ALPRAZOLAM) 0.25 Mg Tablet, 1 TAB PO BID PRN for ANXIETY / AGITATION, #60 TAB 06/18/21 EDMUNDO SINGLETON III DO Jun 20, 2021 11:05
[2021-06-20 11:27] LABS: BASO # 0.1 x10^3/uL (0.0-0.2); BASO % 1 % (0-3); EOS # 0.2 x10^3/uL (0.0-0.7); EOS % 4 % (0-3); HEMATOCRIT 39.2 % (36.0-47.0); HEMOGLOBIN 13.3 g/dL (12.0-15.5); LYMPH # 0.9 x10^3/uL (1.0-4.8); LYMPH % 21 % (24-48); MEAN CORPUSCULAR HEMOGLOBIN 31 pg (25-35); MEAN CORPUSCULAR HGB CONC 34 g/dL (31-37); MEAN CORPUSCULAR VOLUME 92 fL (79-100); MONO # 0.6 x10^3/uL (0.0-1.1); MONO % 13 % (0-9); NEUT # 2.6 x10^3/uL (1.8-7.7); NEUT % 61 % (31-73); PLATELET COUNT 196 x10^3/uL (140-400); RED BLOOD COUNT 4.25 x10^6/uL (3.50-5.40); RED CELL DISTRIBUTION WIDTH 13.1 % (11.5-14.5); WHITE BLOOD COUNT 4.2 x10^3/uL (4.0-11.0)
--- NOTE | 2021-06-20 12:07 | DS ---
DATE OF DISCHARGE: 06/20/2021 ADMITTING DIAGNOSIS: Gastrointestinal bleed. DISCHARGE DIAGNOSES: Resolving gastrointestinal bleed, suspect hemorrhoids, history of diverticulosis, irritable bowel syndrome, hypertension, hyperlipidemia, neuropathy, hypothyroidism, anxiety, cholecystectomy, appendectomy, and left breast lumpectomy. CONSULTS: GI. PROCEDURES: None. HOSPITAL COURSE: The patient is a pleasant, middle-aged female who presented with GI bleed. We trended her hemoglobin. She never required transfusions. Today, she is at 11.7. Her highest was 13 when she first got here. We did consult GI. They recommended proton pump inhibitors. Over the past few days, she is doing well. I saw and examined her today. She wants to go home. We plan to discharge. DISPOSITION: Home. ACTIVITY: As tolerated. DIET: Low sodium. DISCHARGE MEDICATIONS: Please see the MRAD. P.r.n. hydrocodone, Protonix 40 a day, alprazolam 0.25 b.i.d., amlodipine 5 a day, colestipol 1 gram t.i.d., Pepcid 20 a day, Lasix 20 a day, glimepiride 2 a day, Synthroid 100 a day, lisinopril 20 a day, and metoprolol 50 a day. Total time 34 minutes. LORY/LADAN DR: Nadine TID: [id number]
--- NOTE | 2021-06-20 12:08 | NUR ---
Pt left unit at 1200 by wheelchair, accompanied by daughter in law. Pt's IV removed without complications, VSS. Discharge paperwork discussed with pt and daughter in law at bedside. Additional questions addressed.
== END 2021-06-20 12:11 | disposition home or self-care (01) | DRG 379 ==
LOC: ER 19:19 → 5 NORTH 23:29
PROVIDERS: ADMIT Internal Medicine; ATTEND Internal Medicine
DX: K57.31 Diverticulosis of large intestine without perforation or abscess with bleeding (principal); E03.9 Hypothyroidism, unspecified; E11.42 Type 2 diabetes mellitus with diabetic polyneuropathy; E78.00 Pure hypercholesterolemia, unspecified; E78.5 Hyperlipidemia, unspecified; F41.9 Anxiety disorder, unspecified; I10 Essential (primary) hypertension; K52.9 Noninfective gastroenteritis and colitis, unspecified; K64.9 Unspecified hemorrhoids; K76.0 Fatty (change of) liver, not elsewhere classified; N63.20 Unspecified lump in the left breast, unspecified quadrant; Z83.3 Family history of diabetes mellitus; Z87.11 Personal history of peptic ulcer disease; Z87.19 Personal history of other diseases of the digestive system; Z87.891 Personal history of nicotine dependence; Z90.49 Acquired absence of other specified parts of digestive tract; K21.9 Gastro-esophageal reflux disease without esophagitis; M19.90 Unspecified osteoarthritis, unspecified site; Z79.84 Long term (current) use of oral hypoglycemic drugs; Z88.8 Allergy status to other drugs, medicaments and biological substances
CPT/HCPCS: 36415; 74177; 80053; 82274; 82962; 85025; 85027; 85610; 85730; 93005; 96361; 96374; 96375; J2060; J2270; J7030; Q9967; 99285-25; G0378